=== PATIENT | male | born 1995 | race Caucasian/White ===

== ENCOUNTER 2017-10-02 19:55 | Emergency (ER) | payer BC, OTHER ==
[~2017-10-02] VITALS: Ht 177.8 cm; Wt 63.5 kg
--- NOTE | ~2017-10-02 | EKG ---
[place] [address] [facility] [place] [address] ELECTROCARDIOGRAM REPORT Name: JEREMY EUBANKS Room #: DEP COY Hayes#: [id number] Admission: 10/02/17 Attend Phys: Discharge: 10/02/17 Date of : [birth year] Report #: [id number] THIS REPORT FOR: //name// [facility] ED Test Date: 2017-10-02 Test Time: 20:16:27 Pat Name: JEREMY EUBANKS Department: Room: Gender: [employer] Actuary: JBSHARYN : 1995 Requested By: Philomena Cleveland Order Number: [id number] MD: Alexy Young Measurements Intervals Brice Rate: 67 P: -14 ID: 105 QRS: 61 QRSD: 88 T: 8 QT: 352 QTc: 372 Interpretive Statements Sinus rhythm Short ID interval No previous ECG available for comparison Electronically Signed On 10-03-2017 8:40:09 [employer]ENIOR BUSINESS ARCHITECT by Alexy Young [email or web address] <ELECTRONICALLY SIGNED> By: Alexy Young MD, [facility] 10/03/17 0840 15 15 Alexy Young MD, FACC /EPI
== END 2017-10-02 21:45 | disposition home or self-care (01) ==
LOC: ER 19:55
DX: R07.89 Other chest pain (principal); F17.210 Nicotine dependence, cigarettes, uncomplicated

== ENCOUNTER 2020-06-09 21:55 | Emergency (ER) | payer BC, OTHER ==
[~2020-06-09] VITALS: Ht 180.3 cm; Wt 68.0 kg
[2020-06-09 23:56] VITALS: BP 124/63
== END 2020-06-09 23:56 | disposition home or self-care (01) ==
LOC: ER 21:55
DX: S61.215A Laceration without foreign body of left ring finger without damage to nail, initial encounter (principal); F17.210 Nicotine dependence, cigarettes, uncomplicated; W26.8XXA Contact with other sharp object(s), not elsewhere classified, initial encounter; Y93.89 Activity, other specified; Y92.89 Other specified places as the place of occurrence of the external cause; Y99.8 Other external cause status